=== PATIENT | female | born 1990 | race Caucasian/White ===

== ENCOUNTER 2023-09-09 19:54 | Outpatient (REF) | payer OTHER, SELFPAY ==
[2023-09-15 16:09] LABS: Age Gdln ACOG Testing Note (.); HPV Aptima Negative (Negative); IGP, Aptima HPV, rfx 16/18,45 Note (.)
== END 2023-09-09 19:55 | disposition home or self-care (01) ==
LOC: LAB 19:54
PROVIDERS: Visit Provider Physician Assistant
DX: Z01.419 Encounter for gynecological examination (general) (routine) without abnormal findings (principal)
CPT/HCPCS: 87624; G0145